=== PATIENT | female | born 1970 | race Caucasian/White ===

== ENCOUNTER 2023-11-02 21:00 | Emergency (ER) | payer OTHER, SELFPAY ==
[2023-11-02 21:02] VITALS: BP 129/87
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
== END 2023-11-02 23:17 | disposition home or self-care (01) ==
LOC: EMR 21:00
PROVIDERS: EMERGENCY PHYSICIAN Emergency Medicine; FAMILY PHYSICIAN Internal Medicine
DX: S16.1XXA Strain of muscle, fascia and tendon at neck level, initial encounter (principal); S50.811A Abrasion of right forearm, initial encounter; V89.2XXA Person injured in unspecified motor-vehicle accident, traffic, initial encounter
CPT/HCPCS: 99284; 70450; 72125

== ENCOUNTER → 2024-12-15 12:43 | Outpatient (REF) | payer BC, SELFPAY | LOC: HWRAD 12:43 | PROVIDERS: ATTENDING PHYSICIAN Obstetrics & Gynecology Gynecology; FAMILY PHYSICIAN Internal Medicine | DX: N95.0 Postmenopausal bleeding (principal) | CPT/HCPCS: 76830; 76856 ==